=== PATIENT | male | born 1990 | race Two or more races ===

== ENCOUNTER 2019-10-28 00:06 | Emergency (ER) | payer BC ==
[~2019-10-28] VITALS: Ht 175.3 cm; Wt 99.8 kg
[2019-10-28 00:25] VITALS: BP 134/84
--- NOTE | 2019-10-28 00:25 | NUR ---
ED Nurse Note: Pt walked into ED for c/o wound to R hand s/p dog bite yesterday around 1700. Pt states he was out walking his dog when another dog that is unknown by pt bit him when he tried to pet it. Pt has wound to R hand, no active bleeding, CMS intact. Pt is aaox4, breathing is normal and unlabored, no cardiac distress. Pt is ambulatory with steady gait.
--- NOTE | 2019-10-28 00:40 | NUR ---
ED Nurse Note: ERMD bedside for lac repair.
[2019-10-28] MEDS ORDERED: Tetanus/Diptheria/Pertussis IM ONE (00:45)
[2019-10-28] MEDS ORDERED: Augmentin 875mg Tab ORAL ONE (00:45)
--- NOTE | 2019-10-28 01:00 | NUR ---
ED Nurse Note: Neosporin and bandaged placed by tech. No complications noted.
--- NOTE | 2019-10-28 01:00 | Emergency Room Report ---
History of Present Illness General Chief Complaint: Animal Bite Source: Patient Present Illness HPI This is a 29-year-old male who is right-hand dominant. He presents with chief complaint of dog bite to his right hand. This occurred around 5 PM today. He was playing with someone else's dog and hit it in the butt. The dog turnaround bit him in the hand. He sustained a puncture wound to the dorsum of his right hand and a laceration to the palm of the hand. No fever chills but no nausea no vomiting. Lipid swollen now and tender so he came in. Denies any other complaint. He does not know the mutation status of the dog but it is a family dog. Allergies: Coded Allergies: No Known Allergies (Unverified , 10/28/19) COVID-19 Screening Contact w/high risk pt: No Recent Travel to affected area: No Experienced COVID-19 symptoms?: No Patient History Past Medical History: none, see triage record, old chart reviewed Past Surgical History: none Pertinent Family History: none Social History: Denies: smoking Immunizations: other Reviewed Nursing Documentation: PMH: Agreed; PSxH: Agreed Nursing Documentation-PMH Past Medical History: No Stated History Review of Systems Eye: Denies: eye pain, blurred vision ENT: Denies: ear pain, nose congestion, throat swelling Respiratory: Denies: cough, shortness of breath Cardiovascular: Denies: chest pain, palpitations Gastrointestinal: Denies: abdominal pain, diarrhea, nausea, vomiting Musculoskeletal: Reports: muscle pain; Denies: back pain, joint pain Skin: Denies: rash Neurological: Denies: headache, numbness Endocrine: Denies: increased thirst, increased urine Hematologic/Lymphatic: Denies: easy bruising All Other Systems: negative except mentioned in HPI Physical Exam Vital Signs Date Time Temp Pulse Resp B/P (MAP) Pulse Ox O2 Delivery O2 Flow Rate FiO2 10/28/19 00:10 98.4 123 19 134/84 (101) 94 Room Air Vitals with tachycardia Sp02 EP Interpretation: reviewed, normal General Appearance: well appearing, no apparent distress, alert Head: normocephalic, atraumatic Eyes: bilateral eye PERRL, bilateral eye EOMI ENT: hearing grossly normal, normal pharynx Neck: full range of motion, supple, no meningismus Respiratory: chest non-tender, lungs clear, normal breath sounds Cardiovascular #1: regular rate, rhythm, no murmur Gastrointestinal: normal bowel sounds, non tender, no mass, no organomegaly, no bruit, non-distended Musculoskeletal: back normal, normal range of motion, gait/station normal, other Psychiatric: mood/affect normal Procedures Laceration/Wound Repair Laceration/Wound Repair : Consent: Verbal Wound Location: upper extremity - Right hand Wound's Depth, Shape: irregular, contused tissue Wound Length (cm): 3 Wound Explored: clean Irrigated w/ Saline (ccs): 1000 Betadine Prep?: Yes Anesthesia: 1% Lidocaine Volume Anesthetic (ccs): 3 Wound Debrided: minimal Wound Repaired With: sutures Suture Size/Type: 5:0, proline Number of Sutures: 3 Patient Tolerated: Well Complications: None Medical Decision Making Diagnostic Impression: Primary Impression: Dog bite of right hand Qualified Codes: S61.451A - Open bite of right hand, initial encounter; W54.0XXA - Bitten by dog, initial encounter Additional Impression: Hand laceration Qualified Codes: S61.411A - Laceration without foreign body of right hand, initial encounter ER Course Patient presents with a dog bite to the right hand. No foreign body or tendon laceration. No fracture. Wound irrigated. The largest wound was sutured loosely. Explained the risks of infection for the patient. Will discharge home. It is a family dog so unlikely to have rabies. Other X-Ray Diagnostic Results Other X-Ray Diagnostic Results : X-Ray ordered: Right hand x-rays # of Views/Limited Vs Complete: 3 View Indication: Pain EP Interpretation: Yes Interpretation: no dislocation, no soft tissue swelling, no fractures Impression: No acute disease Electronically Signed by: Wood Loaiza MD Last Vital Signs Date Time Temp Pulse Resp B/P (MAP) Pulse Ox O2 Delivery O2 Flow Rate FiO2 10/28/19 00:25 98.4 123 19 134/84 94 Room Air Status: improved Disposition: HOME, SELF-CARE Condition: Stable Scripts Amoxicillin/Potassium Clav 875-125* (AUGMENTIN 875-125 TABLET*) 1 Each Tablet 1 TAB ORAL TWICE A DAY, #14 TAB Prov: Wood Loaiza MD 10/28/19 Referrals: MARCELINO LYNCH (PCP) Patient Instructions: Animal Bite Additional Instructions: Keep wound clean. Clean with hydrogen peroxide first and then apply antibiotic ointment. Sutures out in 7 days. Return if worse. Wood Loaiza MD Oct 28, 2019 01:00
[2019-10-28] MEDS ORDERED: AUGMENTIN 875-1 EAC1 ORAL (01:03)
[2019-10-28] MEDS ORDERED: Neosporin Oint Ud Pkt TOPIC ONE (01:15)
[2019-10-28 01:20] VITALS: BP 128/78
--- NOTE | 2019-10-28 01:20 | NUR ---
ER DISCHARGE NOTE: Patient is cleared to be discharged per ERMD, pt is aox4, on room air, with stable vital signs. pt was given dc and prescription instructions, pt was able to verbalize understanding, pt id band removed. pt is able to ambulate with steady gait. pt took all belongings.
--- NOTE | 2019-10-28 08:29 | Diagnostic Imaging Report ---
Indication: Trauma, pain, dog bite right hand, puncture wounds on palm and dorsum Technique: 3 views right hand Comparison: none Findings: No acute fractures. No dislocations. No radiopaque foreign body. The joint spaces are preserved. No bony disruption Impression: Negative
== END 2019-10-28 01:20 | disposition home or self-care (01) ==
LOC: EMR 00:20
DX: S61.451A Open bite of right hand, initial encounter (principal); S61.411A Laceration without foreign body of right hand, initial encounter; Z23 Encounter for immunization; W54.0XXA Bitten by dog, initial encounter; Y92.9 Unspecified place or not applicable
CPT/HCPCS: 90471; 90715; 99283